=== PATIENT | male | born 1970 | race Two or more races ===

== ENCOUNTER 2017-04-20 02:22 | Emergency (ER) | payer OTHER ==
[~2017-04-20] VITALS: Ht 175.3 cm; Wt 89.5 kg
[2017-04-20] MEDS ORDERED: IBUPROFEN600 MG PO (04:44)
[2017-04-20] MEDS ORDERED: ORPHENADRINE100 MG PO (04:44)
[2017-04-20 05:00] VITALS: BP 127/87
== END 2017-04-20 05:04 | disposition home or self-care (01) | DRG 552 ==
LOC: ED 02:22
DX: S16.1XXA Strain of muscle, fascia and tendon at neck level, initial encounter (principal); F17.210 Nicotine dependence, cigarettes, uncomplicated; V49.40XA Driver injured in collision with unspecified motor vehicles in traffic accident, initial encounter